=== PATIENT | female | born 1940 | race Caucasian/White ===

== ENCOUNTER → 2018-12-12 | Outpatient (CLI) | payer MEDICARE, OTHER ==
[~2018-12-12] MED LIST: BRIM5DRO3 EACHEYE; CELE200C PO; CHOL10003 PO; DEXL60CA2 PO; DOCU-131 PO; HYDR50TA13 PO; KRIL1CAP PO; LATA2.5D3 EACHEYE; LEVO150T PO; LEVO5TAB29 PO; LIOT5TAB10 PO; LUTE1CAP PO; MELO15TA24 PO; METO25TA35 PO; RANI150T23 PO; TEMA15CA PO; TRAV5DRO EACHEYE; TRIA1TAB PO; macutene PO; triamterene PO; vitamin e PO
[2018-12-12 11:15] LABS: BASOPHILS # (AUTO) 0.01 x10^3/uL (0-0.1); BASOPHILS % (AUTO) 0 % (0-1); EOSINOPHILS # (AUTO) 0.08 x10^3/uL (0-0.4); EOSINOPHILS % (AUTO) 2 % (1-7); LYMPHOCYTES # (AUTO) 0.64 x10^3/uL (1-3.4); LYMPHOCYTES % (AUTO) 14 % (22-44); MD NO; MEAN CORPUSCULAR HEMOGLOBIN 31.4 pg (27.0-34.8); MEAN CORPUSCULAR VOLUME 95.1 fL (80-100); MEAN PLATELET VOLUME 6.6 fL (7.4-10.4); MONOCYTES # (AUTO) 0.17 x10^3/uL (0.2-0.8); MONOCYTES % (AUTO) 4 % (2-9); NEUTROPHILS % (AUTO) 80 % (42-75); PLATELET COUNT 263 x10^3/uL (130-400); RED BLOOD COUNT 3.12 x10^6/uL (3.82-5.3); RED CELL DISTRIBUTION WIDTH 15.2 % (9.6-15.2)
[2018-12-12 11:16] LABS: MICROSCOPIC NOT IND
[2018-12-12 11:17] LABS: CULTURE INDICATED? NO
[2018-12-12 11:26] LABS: INTERNATIONAL NORMALIZED RATIO 1.1 (0.93-1.1); PROTHROMBIN TIME 11.6 Seconds (9.6-11.5)
[2018-12-12 11:27] LABS: ALANINE AMINOTRANSFERASE 23 U/L (12-78); ALBUMIN 4.2 g/dL (3.4-5.0); ANION GAP 3 mmol/L (5-15); CALCIUM 9.9 mg/dL (8.5-10.1); CHLORIDE 107 mmol/L (98-107); CREATININE 1.06 mg/dL (0.55-1.02)
[2018-12-12 11:29] LABS: ALKALINE PHOSPHATASE 95 U/L (45-117); BILIRUBIN,TOTAL 0.6 mg/dL (0.2-1.0); TOTAL PROTEIN 6.9 g/dL (6.4-8.2)
== END | disposition home or self-care (01) ==
LOC: STAR 09:54
PROVIDERS: ATTEND Neurological Surgery
DX: Z01.818 Encounter for other preprocedural examination (principal); M54.16 Radiculopathy, lumbar region; M51.36 Other intervertebral disc degeneration, lumbar region; I44.4 Left anterior fascicular block; I45.10 Unspecified right bundle-branch block
CPT/HCPCS: 36415; 71046; 80053; 81003; 85025; 85610; 85730; 93005

== ENCOUNTER 2018-12-25 07:30 | Inpatient (IN) | payer MEDICARE, OTHER ==
[~2018-12-25] VITALS: Ht 160 cm; Wt 80.3 kg
[2019-01-01] MEDS ORDERED: BUPIVACAINE/PF 0.25% ONE (07:00)
[2019-01-01] MEDS ORDERED: EPINEPHRINE 1 MG/ML, 1ML ONE (07:01)
[2019-01-01] MEDS ORDERED: BACITRACIN 50,000 UNIT ONE (07:01)
[2019-01-01] MEDS ORDERED: THROMBIN 5,000 UNIT VIAL TP ONE (07:01)
[2019-01-01] MEDS ORDERED: VANCOMYCIN 1,000 MG ONE (07:01)
[2019-01-01] MEDS ORDERED: LACTATED RINGERS 1,000 ML IV SCH (07:44)
[2019-01-01] MEDS ORDERED: FENTANYL PF 250 MCG/5ML ONE (08:24)
[2019-01-01] MEDS ORDERED: LIDOCAINE-MPF 2% ,5ML ONE (08:28)
[2019-01-01] MEDS ORDERED: DEXAMETHASONE 4 MG/ML, 1ML ONE ×2 (08:28→10:30)
[2019-01-01] MEDS ORDERED: ONDANSETRON 2MG/ML, 2ML ONE ×2 (08:28→10:30)
[2019-01-01] MEDS ORDERED: GLYCOPYRROLATE 0.2MG/1ML, 5ML ONE ×2 (08:28→10:30)
[2019-01-01] MEDS ORDERED: ROCURONIUM 10MG/ML,5ML ONE ×2 (08:28→10:30)
[2019-01-01] MEDS ORDERED: SUCCINYLCHOLINE 20 MG/ML, 10ML ONE ×2 (08:28→10:30)
[2019-01-01] MEDS ORDERED: PROPOFOL 10 MG/ML, 20ML ONE ×2 (08:28→10:30)
[2019-01-01] MEDS ORDERED: CEFAZOLIN 1,000 MG ONE ×2 (08:28→10:30)
[2019-01-01] MEDS ORDERED: NEOSTIGMINE 1 MG/ML, 10ML ONE ×2 (08:28→10:30)
[2019-01-01] MEDS ORDERED: OXYcodone 5 MG/5 ML ORAL.SOL UDC PO PRN (09:30)
[2019-01-01] MEDS ORDERED: ACETAMINOPHEN 325 MG TABLET PO PRN ×2 (09:30→12:00)
[2019-01-01] MEDS ORDERED: ONDANSETRON ODT 8 MG PO PRN (09:30)
[2019-01-01] MEDS ORDERED: DIAZEPAM 5 MG/ML, 2ML IVPush PRN (09:30)
[2019-01-01] MEDS ORDERED: FENTANYL PF 100 MCG/2ML IV PRN (09:30)
[2019-01-01] MEDS ORDERED: PROPOFOL 100 ML ONE (09:30)
[2019-01-01] MEDS ORDERED: PROMETHAZINE 25 MG/ML, 1ML IV PRN (09:30)
[2019-01-01] MEDS ORDERED: ONDANSETRON 2MG/ML, 2ML IV PRN (09:30)
[2019-01-01] MEDS ORDERED: HYDROmorphone 2 MG/ML, 1ML IVPush PRN (09:30)
[2019-01-01] MEDS ORDERED: DIPHENHYDRAMINE 50 MG/ML, 1ML ONE (10:30)
[2019-01-01] MEDS ORDERED: PHARMACY MAY ADJ FOR RENAL FX MC PRN (12:00)
[2019-01-01] MEDS ORDERED: BISACODYL 10 MG SUPP PR PRN (12:00)
[2019-01-01] MEDS ORDERED: TIZANIDINE 2MG TABLET PO PRN (12:00)
[2019-01-01] MEDS ORDERED: DIPHENHYDRAMINE 25 MG CAPSULE PO PRN (12:00)
[2019-01-01] MEDS ORDERED: HYDROmorphone 1 MG/ML, 1ML AMP IVPush PRN (12:00)
[2019-01-01] MEDS ORDERED: MAGNESIUM HYDROXIDE 8%, 30ML UDC PO PRN (12:00)
[2019-01-01] MEDS ORDERED: HYDROmorphone PCA 30 MG/30 ML IV PRN (12:00)
[2019-01-01] MEDS ORDERED: PROMETHAZINE 25 MG/ML, 1ML IM PRN (12:00)
[2019-01-01] MEDS ORDERED: HYDROmorphone 2 MG/ML, 1ML ONE (12:04)
[2019-01-01] MEDS ORDERED: FENTANYL PF 100 MCG/2ML ONE (12:04)
[2019-01-01 14:00] VITALS: BP 115/60
[2019-01-01] MEDS: NS + 20MEQ KCL 1,000 ML IV SCH (15:16)
[2019-01-01] MEDS: CEFAZOLIN PMX 1GM/50ML 50 ML IVPB SCH (18:30)
[2019-01-01 19:16] VITALS: BP 120/63
[2019-01-01] MEDS: FAMOTIDINE 20 MG TABLET PO SCH (21:04)
[2019-01-01] MEDS: LEVOCETIRIZINE 5 MG TAB PO SCH (21:04)
[2019-01-01] MEDS: ONDANSETRON 2MG/ML, 2ML IVPush PRN (21:05)
[2019-01-01] MEDS: SODIUM CHLORIDE FLUSH 10ML SYR IVF SCH (21:05)
[2019-01-01] MEDS: TEMAZEPAM 15 MG CAPSULE PO SCH (21:05)
[2019-01-01] MEDS: METOPROLOL TARTRATE 25 MG TABLET PO SCH (21:05)
[2019-01-01 23:38] VITALS: BP 99/62
[2019-01-02] MEDS: NS + 20MEQ KCL 1,000 ML IV SCH ×2 (01:20→11:30)
[2019-01-02] MEDS: CEFAZOLIN PMX 1GM/50ML 50 ML IVPB SCH (02:30)
[2019-01-02 03:54] VITALS: BP 107/54
[2019-01-02] MEDS: ONDANSETRON 2MG/ML, 2ML IVPush PRN ×3 (04:31→21:55)
[2019-01-02 05:19] LABS: BASOPHILS # (AUTO) 0.01 x10^3/uL (0-0.1); BASOPHILS % (AUTO) 0 % (0-1); EOSINOPHILS # (AUTO) 0.07 x10^3/uL (0-0.4); EOSINOPHILS % (AUTO) 1 % (1-7); LYMPHOCYTES # (AUTO) 0.58 x10^3/uL (1-3.4); LYMPHOCYTES % (AUTO) 11 % (22-44); MD NO; MEAN CORPUSCULAR HGB CONC 33.4 g/dL (32.4-35.8); MEAN CORPUSCULAR VOLUME 95.8 fL (80-100); MONOCYTES # (AUTO) 0.25 x10^3/uL (0.2-0.8); MONOCYTES % (AUTO) 5 % (2-9); NEUTROPHILS # (AUTO) 4.42 x10^3/uL (1.8-6.8); NEUTROPHILS % (AUTO) 83 % (42-75); PLATELET COUNT 221 x10^3/uL (130-400); RED BLOOD COUNT 2.43 x10^6/uL (3.82-5.3); RED CELL DISTRIBUTION WIDTH 15.3 % (9.6-15.2)
[2019-01-02 05:31] LABS: ANION GAP 5 mmol/L (5-15); CALCIUM 9.4 mg/dL (8.5-10.1); CHLORIDE 106 mmol/L (98-107); CREATININE 0.84 mg/dL (0.55-1.02)
[2019-01-02] MEDS: LEVOTHYROXINE 150 MCG TABLET PO SCH (06:40)
[2019-01-02 07:58] VITALS: BP 113/56
[2019-01-02] MEDS: METOPROLOL TARTRATE 25 MG TABLET PO SCH ×2 (08:01→21:56)
[2019-01-02] MEDS: LIOTHYRONINE 5 MCG TABLET PO SCH (08:07)
[2019-01-02] MEDS: SODIUM CHLORIDE FLUSH 10ML SYR IVF SCH ×2 (08:46→21:55)
[2019-01-02] MEDS: SENNA/DOCUSATE TABLET PO SCH (10:14)
[2019-01-02 13:43] VITALS: BP 112/57
[2019-01-02] MEDS: HYDROcodone/APAP 5/325 TABLET PO PRN ×2 (15:33→20:38)
[2019-01-02 18:57] VITALS: BP 116/65
[2019-01-02] MEDS: TEMAZEPAM 15 MG CAPSULE PO SCH (21:56)
[2019-01-02] MEDS: LEVOCETIRIZINE 5 MG TAB PO SCH (21:56)
[2019-01-02] MEDS: FAMOTIDINE 20 MG TABLET PO SCH (22:04)
[2019-01-03 00:48] VITALS: BP 107/63
[2019-01-03] MEDS: HYDROcodone/APAP 5/325 TABLET PO PRN ×2 (02:45→08:56)
[2019-01-03] MEDS: NS + 20MEQ KCL 1,000 ML IV SCH (02:45)
[2019-01-03 05:04] LABS: BASOPHILS # (AUTO) 0.01 x10^3/uL (0-0.1); BASOPHILS % (AUTO) 0 % (0-1); EOSINOPHILS # (AUTO) 0.05 x10^3/uL (0-0.4); EOSINOPHILS % (AUTO) 1 % (1-7); LYMPHOCYTES # (AUTO) 0.83 x10^3/uL (1-3.4); LYMPHOCYTES % (AUTO) 18 % (22-44); MD NO; MEAN CORPUSCULAR HEMOGLOBIN 33.1 pg (27.0-34.8); MEAN CORPUSCULAR HGB CONC 34.7 g/dL (32.4-35.8); MEAN CORPUSCULAR VOLUME 95.5 fL (80-100); MEAN PLATELET VOLUME 6.9 fL (7.4-10.4); MONOCYTES # (AUTO) 0.24 x10^3/uL (0.2-0.8); MONOCYTES % (AUTO) 5 % (2-9); NEUTROPHILS % (AUTO) 76 % (42-75); PLATELET COUNT 213 x10^3/uL (130-400); RED BLOOD COUNT 2.51 x10^6/uL (3.82-5.3); RED CELL DISTRIBUTION WIDTH 15.4 % (9.6-15.2)
[2019-01-03 05:12] LABS: CHLORIDE 110 mmol/L (98-107)
[2019-01-03 05:20] LABS: ANION GAP 4 mmol/L (5-15); CREATININE 0.81 mg/dL (0.55-1.02)
[2019-01-03 06:37] VITALS: BP 115/71
[2019-01-03] MEDS: LEVOTHYROXINE 150 MCG TABLET PO SCH (06:44)
[2019-01-03] MEDS ORDERED: TIZA2TAB PO (08:47)
[2019-01-03] MEDS ORDERED: HYDR-3240 PO (08:47)
[2019-01-03] MEDS: SENNA/DOCUSATE TABLET PO SCH (08:54)
[2019-01-03] MEDS: SODIUM CHLORIDE FLUSH 10ML SYR IVF SCH (08:54)
[2019-01-03] MEDS: LIOTHYRONINE 5 MCG TABLET PO SCH (08:56)
[2019-01-03] MEDS: METOPROLOL TARTRATE 25 MG TABLET PO SCH (08:57)
[2019-01-03] MEDS ORDERED: SENN-177 PO (09:21)
[2019-01-03 10:29] VITALS: BP 102/60
== END 2019-01-03 12:05 | disposition home or self-care (01) | DRG 455 ==
LOC: EDSTATUS 07:30 → ORIP 01-01 07:11 → 4NOR 01-01 13:28 → DCLOUNGE 01-03 11:50
PROVIDERS: ADMIT Neurological Surgery; ATTEND Neurological Surgery
PROC: 0SP00AZ Removal of Interbody Fusion Device from Lumbar Vertebral Joint, Open Approach (ICD-10-PCS; 2019-01-01)
PROC: 4A11X4G Monitoring of Peripheral Nervous Electrical Activity, Intraoperative, External Approach (ICD-10-PCS; 2019-01-01)
PROC: 0SB20ZZ Excision of Lumbar Vertebral Disc, Open Approach (ICD-10-PCS; 2019-01-01)
PROC: 0SG0071 Fusion of Lumbar Vertebral Joint with Autologous Tissue Substitute, Posterior Approach, Posterior Column, Open Approach (ICD-10-PCS; 2019-01-01)
PROC: 0SG00AJ Fusion of Lumbar Vertebral Joint with Interbody Fusion Device, Posterior Approach, Anterior Column, Open Approach (ICD-10-PCS; principal; 2019-01-01 09:30)
DX: M51.16 Intervertebral disc disorders with radiculopathy, lumbar region (principal); D64.9 Anemia, unspecified; M40.50 Lordosis, unspecified, site unspecified; K21.9 Gastro-esophageal reflux disease without esophagitis; I45.10 Unspecified right bundle-branch block; M48.061 Spinal stenosis, lumbar region without neurogenic claudication; Z88.8 Allergy status to other drugs, medicaments and biological substances; Z88.5 Allergy status to narcotic agent; Z82.61 Family history of arthritis; Z82.49 Family history of ischemic heart disease and other diseases of the circulatory system; Z83.3 Family history of diabetes mellitus
CPT/HCPCS: 36415; 72100; 80048; 85025; 95938; 95941; C1713; C1776; G0378; J0171; J0690; J1100; J1170; J2405; J2704; J2710; J3010; J3370; J3480; J3490; C1762; J0330; J1200; J7120